=== PATIENT | female | born 1945 ===

== ENCOUNTER 2016-08-10 19:27 | Inpatient (IN) | payer MEDICARE ==
[2016-08-10] MEDS: NITROGLYCERIN SL TABS 0.4 MG TAB SUBLINGUAL ONE ×2 (22:01→22:06)
[2016-08-10] MEDS ORDERED: ONDANSETRON 4 MG/2 ML VIAL IVP PRN (23:06)
[2016-08-10] MEDS ORDERED: OXYCODONE HCL PO PRN (23:07)
[2016-08-10] MEDS: SODIUM CHLORIDE 0.9% 1,000 ML IV SCH (23:16)
[2016-08-10] MEDS: hydrALAZINE HCL 50 MG TAB PO SCH (23:36)
[2016-08-10] MEDS: tiZANidine 4 MG TAB PO SCH (23:36)
[2016-08-10] MEDS: APIXABAN 2.5 MG TABLET PO SCH (23:36)
[2016-08-10] MEDS: GABAPENTIN 300 MG CAP PO SCH (23:36)
[2016-08-10] MEDS: VENLAFAXINE HCL 75 MG TAB PO SCH (23:37)
[2016-08-10] MEDS: METOPROLOL TARTRATE 50 MG TAB PO SCH (23:37)
[2016-08-11] MEDS: LORazepam 0.5 MG TAB PO PRN (00:48)
[2016-08-11 01:48] LABS: Glucose,Whole Blood 111 mg/dL (75-99)
[2016-08-11 02:28] LABS: Basophils % (A) 1 %; CH 27.5; CHCM 31.6; Eosinophils # (A) 0.1 k/uL (0-0.7); Eosinophils % (A) 2 %; HCT 34.9 % (34.0-46.0); HDW 2.52; HGB 11.1 gm/dL (11.4-16.0); Hypochromasia Slight; Luc # (Auto) 0.18; Luc % (Auto) 3; Lymphocytes # (A) 2.1 k/uL (1.0-4.8); Lymphocytes % (A) 33 %; MCH 27.8 pg (25.0-35.0); MCHC 31.8 g/dL (31.0-37.0); MCV 87.6 fL (80.0-100.0); Mean Platelet Volume 7.6; Monocytes # (A) 0.5 k/uL (0-1.0); Monocytes % (A) 7 %; Neutrophils # (A) 3.4 k/uL (1.3-7.7); Neutrophils % (A) 54 %; RBC 3.98 m/uL (3.80-5.40); RDW 15.7 % (11.5-15.5); WBC 6.3 k/uL (3.8-10.6); WBC (Perox) 6.06
[2016-08-11] MEDS ORDERED: SODIUM CHLORIDE 0.9% 500 ML IV ONE (02:52)
[2016-08-11] MEDS ORDERED: Magnesium Replacement Protocol 1 EACH MISC MISCELLANE PRN (02:52)
[2016-08-11] MEDS ORDERED: Potassium Replacement Protocol 1 EACH MISC MISCELLANE PRN (02:52)
[2016-08-11 02:53] LABS: Calcium 8.5 mg/dL (8.4-10.2); Total Bilirubin 0.8 mg/dL (0.2-1.3); Total Protein 7.1 g/dL (6.3-8.2)
[2016-08-11 02:54] LABS: Potassium 4.9 mmol/L (3.5-5.1)
[2016-08-11 02:59] LABS: Creatine Kinase MB 1.3 ng/mL (0.0-2.4); Troponin I 0.019 ng/mL (0.000-0.034)
[2016-08-11] MEDS: SODIUM CHLORIDE 0.9% 1,000 ML IV SCH (03:52)
[2016-08-11] MEDS: PANTOPRAZOLE 40 MG TABLET PO SCH ×2 (06:41→18:22)
[2016-08-11 08:13] LABS: Basophils % (A) 1 %; CH 27.3; CHCM 30.6; Eosinophils # (A) 0.2 k/uL (0-0.7); Eosinophils % (A) 3 %; HCT 33.4 % (34.0-46.0); HDW 2.46; HGB 10.2 gm/dL (11.4-16.0); Hypochromasia Moderate; Luc % (Auto) 4; Lymphocytes % (A) 39 %; MCH 27.4 pg (25.0-35.0); MCHC 30.6 g/dL (31.0-37.0); MCV 89.7 fL (80.0-100.0); Mean Platelet Volume 7.6; Monocytes # (A) 0.4 k/uL (0-1.0); Monocytes % (A) 7 %; Neutrophils # (A) 2.5 k/uL (1.3-7.7); Neutrophils % (A) 46 %; RBC 3.73 m/uL (3.80-5.40); RDW 15.6 % (11.5-15.5); WBC 5.3 k/uL (3.8-10.6); WBC (Perox) 5.27
[2016-08-11 08:36] LABS: Calcium 8.2 mg/dL (8.4-10.2); Potassium 4.5 mmol/L (3.5-5.1)
[2016-08-11] MEDS: ASPIRIN 81 MG CHEW PO SCH (08:48)
[2016-08-11] MEDS: hydrALAZINE HCL 50 MG TAB PO SCH ×3 (08:48→22:45)
[2016-08-11] MEDS: GABAPENTIN 300 MG CAP PO SCH ×3 (08:48→22:45)
[2016-08-11] MEDS: FUROSEMIDE 20 MG TAB PO SCH (08:48)
[2016-08-11] MEDS: APIXABAN 2.5 MG TABLET PO SCH ×2 (08:48→19:58)
[2016-08-11] MEDS: VENLAFAXINE HCL 75 MG TAB PO SCH ×2 (08:49→19:58)
[2016-08-11 09:21] LABS: Troponin I 0.014 ng/mL (0.000-0.034)
[2016-08-11] MEDS: METOPROLOL TARTRATE 50 MG TAB PO SCH (10:49)
[2016-08-11] MEDS: CARVEDILOL 3.125 MG TAB PO SCH ×2 (11:37→18:22)
--- NOTE | 2016-08-11 12:06 | CONS ---
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 She was transferred from [facility] yesterday for elevated blood pressure and chest pain. She was given sublingual nitroglycerin. Her pain resolved, but her blood pressure dropped significantly and she was given IV fluids. At this time she is lying in bed comfortably. She says her blood pressure fluctuates quite a bit and despite being on multiple medications. Past history of hypertension, depression, heart failure. REVIEW OF SYSTEMS: No fever, chills, rigors. No cough or expectoration. No nausea, vomiting or diarrhea. No hematuria, dysuria, strokes or seizures. No skin lesions or musculoskeletal complaints. LABS: Her hemoglobin is 10.2. Potassium is normal. BUN 32, creatinine 1.6. GFR is in the 30s. Troponins are normal. On examination, her blood pressure is 131/61 mmHg. 103/53 and 99/52 mmHg and that was after nitroglycerin. Head and neck examination is normal. Heart sounds are normal. Rhythm is irregular. Breath sounds are normal. She is obese. IMPRESSION: 1. Hypertension. 2. Chronic kidney disease. 3. Obesity. 4. Depression. She is on Procardia. She is on metoprolol 50 b.i.d. and hydralazine. SUGGEST: She is bradycardic and is in the high 40s and therefore I will stop metoprolol and switch to carvedilol 3.125 mg p.o. b.i.d. Hopefully on this her heart rate will improve and will maximize it and hopefully her blood pressure also will be better controlled. Her cardiac enzymes are normal.
[2016-08-11] MEDS: tiZANidine 4 MG TAB PO SCH (19:58)
--- NOTE | 2016-08-11 20:19 | HP ---
DATE OF ADMISSION: 08/10/2016 REASON FOR ADMISSION: Chest pain. HISTORY OF PRESENT ILLNESS: This is a 70-year-old female that is transferred from [facility] due to complaints of chest pain and elevated blood pressure. Patient states she is compliant with her medication. She does have a history of blood pressure and states that her recent checks have been appropriately controlled. Patient went into [facility] with complaints of midsternal chest pain, stabbing in nature, radiating to her bilateral shoulders. This started as patient was resting. This was around 2:30 p.m. Patient states that there is no reproducibility of the symptoms. No recent illnesses are reported. No nausea, vomiting, difficulty breathing, abdominal pain, urinary urgency or frequency. Patient states that she is symptom-free at this time. Feels significantly improved. REVIEW OF SYSTEMS: 14 point review of systems was done; none pertinent other than mentioned above. Past medical history includes hypertension, depression and congestive heart failure and chronic low back pain. Past surgical history includes multiple back surgeries. SOCIAL HISTORY: Lives alone. Denies any illicit drug use. Remote history of smoking is reported. No drug use. FAMILY HISTORY: Not pertinent to current admission. ALLERGIES: BACTRIM. Medications at home include: 1. Zanaflex. 2. Oxycodone. 3. Hydralazine. 4. Effexor. 5. Pantoprazole. 6. Procardia. 7. Metoprolol. 8. Magnesium. 9. Ativan. 10. Neurontin. 11. Lasix. 12. Iron. 13. Aspirin. 14. Eliquis. Those were reviewed and appropriately reconciled. PHYSICAL EXAM: VITALS: Temperature is within normal limits. Heart rate is 54, respiratory rate 18, blood pressure 141/62, saturating 94% on room air. GENERALLY: Patient appears to be alert, oriented x3. HEENT: The pupils are equal and reactive to light and accommodation. HEART: S1, S2 present. No murmur appreciated. LUNGS: Good air entry. No wheezing or rhonchi noted. ABDOMINAL EXAM: Soft, nontender, no organomegaly appreciated. GENITOURINARY: No Schafer in place. EXTREMITIES: Pulses can be palpated distally. Denies any tenderness on gross palpation. SKIN: On a gross skin exam does not appear to have any purpura or any skin rashes that were noted. NEUROLOGICALLY: Grossly cranial nerves 2-12 intact. No motor or sensory deficits noted. Laboratory data includes hemoglobin 10.2, hematocrit 33.4, white count 5.3, platelets of 235, sodium 141, potassium 3.5, chloride 109, bicarb 24, BUN 32, creatinine of 1.39. Cardiac enzymes x two with troponin at a peak of 0.019. ASSESSMENT AND PLAN: 1. Accelerated hypertension with symptoms. 2. Atypical chest pain likely due to hypertension. The initial blood pressure was up to 220/100. 3. 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 4. Obesity. 5. Chronic low back pain due to degenerative disc disease. 6. Acute kidney injury on chronic kidney disease which is improved. 7. Depression. 8. Dyslipidemia. 9. Clinical obstructive sleep apnea. PLAN: Blood pressure medications were readjusted today. A cardiology consultation will be obtained. Encourage activity. Continue with telemetry monitoring as well. DVT prophylaxis will also be ensured in addition to Eliquis with ambulation and TEDS at rest. Continued ongoing care. Patient's blood pressures are stable and if asymptomatic will discharge the patient in the next 24 hours to follow up with her primary care physician. Of note, patient does have some degree of bradycardia, which she is asymptomatic to. Beta nina was switched over to carvedilol.
[2016-08-12] MEDS: SODIUM CHLORIDE 0.9% 1,000 ML IV SCH ×2 (02:39→16:16)
[2016-08-12] MEDS: PANTOPRAZOLE 40 MG TABLET PO SCH ×2 (06:30→17:49)
[2016-08-12] MEDS: CARVEDILOL 3.125 MG TAB PO SCH ×2 (06:30→17:49)
[2016-08-12] MEDS: FUROSEMIDE 20 MG TAB PO SCH (10:29)
[2016-08-12] MEDS: APIXABAN 2.5 MG TABLET PO SCH ×2 (10:29→20:06)
[2016-08-12] MEDS: ASPIRIN 81 MG CHEW PO SCH (10:29)
[2016-08-12] MEDS: VENLAFAXINE HCL 75 MG TAB PO SCH ×2 (10:30→20:06)
[2016-08-12] MEDS: hydrALAZINE HCL 50 MG TAB PO SCH ×4 (10:30→23:56)
[2016-08-12] MEDS: GABAPENTIN 300 MG CAP PO SCH ×3 (10:30→21:33)
[2016-08-12 11:51] VITALS: BMI 44.6
--- NOTE | 2016-08-12 14:01 | P.PN ---
Subjective Principal diagnosis: Hypertension This is a 70-year-old female who was initially transferred from [facility] because of hypertension. She was seen in consultation by Dr. Ferguson. Blood pressure today 144/66 with a heart rate of 60. At times the patient's heart rate is noted to go into the 40s. Dose of beta nina his Coreg 3.125 mg by mouth twice a day. Patient is going to be transferred to the [facility] unit today. We will follow now on an as-needed basis, patient has been recommended to follow-up with her master fisher on discharge. Objective - Vital Signs Vital signs: Vital Signs Temp 97.0 F L 08/12/16 08:00 Pulse 69 08/12/16 08:00 Resp 16 08/12/16 08:00 BP 144/66 08/12/16 08:00 Pulse Ox 95 08/12/16 08:00 Intake & Output 08/11/16 08/12/16 08/12/16 18:59 06:59 18:59 Intake Total 990 615 220 Output Total 1100 Balance -110 615 220 Weight 133.3 kg 133.3 kg Intake: IV 750 375 Sodium Chloride 0.9% 1, 750 375 000 ml @ 75 mls/hr IV . [id number] [facility] Rx#:[id number] Oral 240 240 220 Output: Urine 1100 Other: Voiding Method Toilet Toilet Toilet # Voids 1 1 - Exam PHYSICAL EXAMINATION: HEENT: Head is atraumatic, normocephalic. Pupils equal, round. Neck is supple. There is no elevated jugular venous pressure. HEART EXAMINATION: Heart S1, S2 normal. No murmur or gallop heard. CHEST EXAMINATION: Lungs reveal fine scattered wheezes . No chest wall tenderness is noted on palpation or with deep breathing. ABDOMEN: Soft, nontender. Bowel sounds are heard. No organomegaly noted. EXTREMITIES: 2+ peripheral pulses with no evidence of peripheral edema and no calf tenderness noted. NEUROLOGIC patient is awake, alert and oriented -3. . - Labs CBC & Chem 7: 08/11/16 07:40 08/11/16 07:40 Assessment and Plan (1) Hypertension, accelerated Status: Acute (2) Chronic kidney disease Status: Acute (3) Depressed Status: Acute (4) Obesity Status: Acute (5) Hx of deep venous thrombosis Status: Acute (6) Hyperlipemia Status: Acute Plan: From cardiology's perspective, we'll recommend to continue the patient on her current medications. She will be transferred to the medical surgical unit today and we will follow her as needed. She has been advised to make a follow- up appointment with her master fisher on discharge. DNP note has been reviewed, I agree with a documented findings and plan of care. Patient was seen and examined.
[2016-08-12] MEDS: ACETAMINOPHEN TAB 325 MG TAB PO PRN ×2 (14:25→20:03)
--- NOTE | 2016-08-12 17:45 | P.PN ---
Subjective HISTORY OF PRESENT ILLNESS: This is a 70-year-old female that is transferred from [facility] due to complaints of chest pain and elevated blood pressure. Patient states she is compliant with her medication. She does have a history of blood pressure and states that her recent checks have been appropriately controlled. Patient went into [facility] with complaints of midsternal chest pain, stabbing in nature, radiating to her bilateral shoulders. This started as patient was resting. This was around 2:30 p.m. Patient states that there is no reproducibility of the symptoms. No recent illnesses are reported. No nausea, vomiting, difficulty breathing, abdominal pain, urinary urgency or frequency. Patient states that she is symptom-free at this time. Feels significantly improved. 08/12/16 No chest pain reported however pt was dizzy with ambulation no fevers, chills, nausea, vomiting or diarrhea reported. Medications at home include: 1. Zanaflex. 2. Oxycodone. 3. Hydralazine. 4. Effexor. 5. Pantoprazole. 6. Procardia. 7. Metoprolol. 8. Magnesium. 9. Ativan. 10. Neurontin. 11. Lasix. 12. Iron. 13. Aspirin. 14. Eliquis. Those were reviewed and appropriately reconciled. PHYSICAL EXAM: VITALS: Temperature is within normal limits. Heart rate is 54, respiratory rate 18, blood pressure 141/62, saturating 94% on room air. GENERALLY: Patient appears to be alert, oriented x3. HEENT: The pupils are equal and reactive to light and accommodation. HEART: S1, S2 present. No murmur appreciated. LUNGS: Good air entry. No wheezing or rhonchi noted. ABDOMINAL EXAM: Soft, nontender, no organomegaly appreciated. GENITOURINARY: No Schafer in place. EXTREMITIES: Pulses can be palpated distally. Denies any tenderness on gross palpation. SKIN: On a gross skin exam does not appear to have any purpura or any skin rashes that were noted. NEUROLOGICALLY: Grossly cranial nerves 2-12 intact. No motor or sensory deficits noted. Objective - Vital Signs Vital signs: Vital Signs Temp 97.9 F 08/12/16 14:46 Pulse 68 08/12/16 17:33 Resp 18 08/12/16 17:33 BP 165/72 08/12/16 14:46 Pulse Ox 95 05/22/17 14:46 Intake & Output 08/11/16 08/12/16 08/12/16 18:59 06:59 18:59 Intake Total 990 615 220 Output Total 1100 Balance -110 615 220 Weight 133.3 kg 133.3 kg Intake: IV 750 375 Sodium Chloride 0.9% 1, 750 375 000 ml @ 75 mls/hr IV . [id number] [facility] Rx#:[id number] Oral 240 240 220 Output: Urine 1100 Other: Voiding Method Toilet Toilet Toilet # Voids 1 2 - Labs CBC & Chem 7: 08/11/16 07:40 08/11/16 07:40 Assessment and Plan Plan: ASSESSMENT AND PLAN: 1. Accelerated hypertension with symptoms. 2. Atypical chest pain likely due to hypertension. The initial blood pressure was up to 220/100. 3. 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 4. Obesity. 5. Chronic low back pain due to degenerative disc disease. 6. Acute kidney injury on chronic kidney disease which is improved. 7. Depression. 8. Dyslipidemia. 9. Clinical obstructive sleep apnea. PLAN: Bp is better controlled, some non specific symptoms could be due to abrupt change in bp ivf 500 NS bolus orthostatics overnight monitering will likely dc home if stable in the am.
--- NOTE | 2016-08-12 17:50 | CDI ---
In responding to this query, please exercise your independent professional judgment. The [facility] Coding Staff and Clinical Documentation Specialists appreciate your assistance in clarifying documentation, maintaining compliance with coding guidelines, accurately documenting patients condition and capturing severity of illness. The fact that a question is asked does not imply that any particular answer is desired or expected. Communication forms are a method of clarifying documentation and are not made part of the Legal Health Record. Thank you in advance for your clarification. Last Revision, January 2015 [address] [facility] [place] [address] Documentation Clarification Form Date: 08/12/2016 4:50:00 PM From: April Moraes Admit Date: 08/10/2016 9:27:00 PM Patient Name: Bev Benitez Visit Number: [id number] Discharge Date: Dr. Gennaro Guillaume Accelerated hypertension is documented in the H&P and progress notes. Patient history/risk factors: Hypertension, Obesity Clinical Indicators: Complaints of chest pain, midsternal and elevated blood pressure and states she is compliant with her medication. Lab findings: WBC 5.3, HGB 10.2, HCT 33.4, BUN 32, CR 1.39, Troponin 0.018 Radiology findings: Vital Signs: 165/71 70 28, 194/75 78 18 ( H&P notes initial blood pressure was up to 22/100) Treatment: Telemetry monitoring ASA PO Coreg PO Hydralazine Hcl PO Procardia Xl PO In your professional opinion, can you please clarify accelerated hypertension and if clinically appropriate are you treating? Hypertensive crisis: according to the [place] [employer], Hypertensive crisis is defined as two consecutive blood pressure readings with a systolic BP of >180mmHG Or diastolic BP>: 110mmHG Hypertensive Urgency: Hypertensive crisis without organ damage. Symptoms may or may not be present, but can include: severe headache, shortness of breath, nosebleeds, severe anxiety. Treatment; adjustment of oral blood pressure medications . Hypertensive Emergency: Hypertensive crisis with organ damage. These patients require immediate treatment of blood pressure, most often with IV medications. these patient may experience organ damage Symptoms are consistent with the organ damage that has occurred: chest pain, back pain shortness of breath. visual changes. Other ( Specify if any Heart and or Kidney involvement) Unable to determine Please document in your progress notes and discharge summary in order to capture severity of illness and risk of mortality. Include clinical findings that support your diagnosis. FYI: Press F11 to launch patient chart. Place X here if this finding has no clinical significance, is not applicable or if you are not able to provide any additional documentation. LINDSAY
--- NOTE | 2016-08-12 17:53 | CDI ---
In responding to this query, please exercise your independent professional judgment. The [facility] Coding Staff and Clinical Documentation Specialists appreciate your assistance in clarifying documentation, maintaining compliance with coding guidelines, accurately documenting patients condition and capturing severity of illness. The fact that a question is asked does not imply that any particular answer is desired or expected. Communication forms are a method of clarifying documentation and are not made part of the Legal Health Record. Thank you in advance for your clarification. Last Revision, January 2015 [address] [place] [address] Documentation Clarification Form Date: 08/12/2016 5:29:00 PM From: April Moraes Admit Date: 08/10/2016 9:27:00 PM Patient Name: Bev Benitez Visit Number: [id number] Discharge Date: Dr. Gennaro Guillaume History/Risk Factors: Hypertension, Obesity, Chronic Kidney disease, On admission: BUN 36 CR 1.60 GFR:32 Current: BUN 32 CR 1.39 GFR: 37 Clinical Indicators: Per H&P Treatment: IV fluid bolus Monitor Labs In order to capture the severity of condition, please clarify if the condition signifies: CKD Stage 1 (GFR > 90) CKD Stage 2 (GFR 60-89) CKD Stage 3 (GFR 30-59) CKD Stage 4 (GFR 15-29) CKD Stage 5 (GFR <15) ESRD Unable to determine Other condition, please specify Please document in your progress notes and discharge summary in order to capture severity of illness and risk of mortality. Include clinical findings that support your diagnosis. FYI: Press F11 to launch patient chart. Place X here if this finding has no clinical significance, is not applicable or if you are not able to provide any additional documentation. LINDSAY
[2016-08-12] MEDS ORDERED: SODIUM CHLORIDE 0.9% 500 ML IV ONE (18:22)
[2016-08-12] MEDS: tiZANidine 4 MG TAB PO SCH (20:06)
[2016-08-12] MEDS ORDERED: FERROUS SULFATE 325 MG TAB PO SCH (23:07)
[2016-08-13] MEDS: SODIUM CHLORIDE 0.9% 1,000 ML IV SCH ×2 (05:45→17:40)
[2016-08-13] MEDS: VENLAFAXINE HCL 75 MG TAB PO SCH ×2 (08:05→21:13)
[2016-08-13] MEDS: APIXABAN 2.5 MG TABLET PO SCH ×2 (08:06→21:12)
[2016-08-13] MEDS: GABAPENTIN 300 MG CAP PO SCH ×3 (08:06→21:13)
[2016-08-13] MEDS: PANTOPRAZOLE 40 MG TABLET PO SCH ×2 (08:06→17:12)
[2016-08-13] MEDS: CARVEDILOL 3.125 MG TAB PO SCH ×2 (08:06→17:12)
[2016-08-13] MEDS: hydrALAZINE HCL 50 MG TAB PO SCH (08:06)
[2016-08-13] MEDS: ASPIRIN 81 MG CHEW PO SCH (08:06)
[2016-08-13 09:00] LABS: Basophils % (A) 1 %; CH 27.4; CHCM 30.8; Eosinophils # (A) 0.2 k/uL (0-0.7); Eosinophils % (A) 4 %; HCT 40.9 % (34.0-46.0); HDW 2.48; HGB 12.9 gm/dL (11.4-16.0); Hypochromasia Slight; Luc # (Auto) 0.19; Luc % (Auto) 3; Lymphocytes # (A) 2.2 k/uL (1.0-4.8); Lymphocytes % (A) 36 %; MCH 28.2 pg (25.0-35.0); MCHC 31.6 g/dL (31.0-37.0); MCV 89.4 fL (80.0-100.0); Mean Platelet Volume 7.4; Monocytes # (A) 0.5 k/uL (0-1.0); Monocytes % (A) 9 %; Neutrophils # (A) 2.9 k/uL (1.3-7.7); Neutrophils % (A) 48 %; RBC 4.58 m/uL (3.80-5.40); RDW 15.6 % (11.5-15.5); WBC 6.1 k/uL (3.8-10.6); WBC (Perox) 6.09
[2016-08-13 09:06] LABS: Calcium 9.3 mg/dL (8.4-10.2); Total Bilirubin 0.7 mg/dL (0.2-1.3); Total Protein 7.9 g/dL (6.3-8.2)
[2016-08-13 09:32] LABS: Potassium 4.3 mmol/L (3.5-5.1)
[2016-08-13] MEDS ORDERED: ACETAMINOPHEN TAB 325 MG TAB ONE (13:45)
[2016-08-13] MEDS: ACETAMINOPHEN TAB 325 MG TAB PO PRN ×2 (13:46→21:13)
--- NOTE | 2016-08-13 16:48 | P.PN ---
Subjective HISTORY OF PRESENT ILLNESS: This is a 70-year-old female that is transferred from [facility] due to complaints of chest pain and elevated blood pressure. Patient states she is compliant with her medication. She does have a history of blood pressure and states that her recent checks have been appropriately controlled. Patient went into [facility] with complaints of midsternal chest pain, stabbing in nature, radiating to her bilateral shoulders. This started as patient was resting. This was around 2:30 p.m. Patient states that there is no reproducibility of the symptoms. No recent illnesses are reported. No nausea, vomiting, difficulty breathing, abdominal pain, urinary urgency or frequency. Patient states that she is symptom-free at this time. Feels significantly improved. 08/12/16 No chest pain reported however pt was dizzy with ambulation no fevers, chills, nausea, vomiting or diarrhea reported. 08/13/16 states to be slightly improved Orthostatics still positive No cp reported. PHYSICAL EXAM: VITALS: Temperature is within normal limits. Heart rate is 54, respiratory rate 18, blood pressure 141/62, saturating 94% on room air. GENERALLY: Patient appears to be alert, oriented x3. HEENT: The pupils are equal and reactive to light and accommodation. HEART: S1, S2 present. No murmur appreciated. LUNGS: Good air entry. No wheezing or rhonchi noted. ABDOMINAL EXAM: Soft, nontender, no organomegaly appreciated. GENITOURINARY: No Schafer in place. EXTREMITIES: Pulses can be palpated distally. Denies any tenderness on gross palpation. SKIN: On a gross skin exam does not appear to have any purpura or any skin rashes that were noted. NEUROLOGICALLY: Grossly cranial nerves 2-12 intact. No motor or sensory deficits noted. Objective - Vital Signs Vital signs: Vital Signs Temp 97.0 F L 08/13/16 14:39 Pulse 69 08/13/16 16:00 Resp 18 08/13/16 16:00 BP 127/65 08/13/16 14:39 Pulse Ox 93 L 08/13/16 14:39 Intake & Output 08/12/16 08/13/16 08/13/16 18:59 06:59 18:59 Intake Total 220 1240 Output Total 2 2 Balance 220 -2 1238 Weight 133.3 kg 128.5 kg 128.5 kg Intake: IV 1000 Sodium Chloride 0.9% 1, 1000 000 ml @ 75 mls/hr IV . [id number] [facility] Rx#:[id number] Oral 220 240 Output: Urine 2 2 Other: Voiding Method Toilet Toilet Toilet # Voids 2 2 # Bowel Movements 1 - Labs CBC & Chem 7: 08/13/16 08:06 08/13/16 08:06 Labs: Abnormal Lab Results - Last 24 Hours (Table) 08/13/16 08/13/16 Range/Units 08:06 08:06 RDW 15.6 H (11.5-15.5) % BUN 21 H (7-17) mg/dL Creatinine 1.45 H (0.52-1.04) mg/dL Glucose 103 H (74-99) mg/dL Assessment and Plan Plan: ASSESSMENT AND PLAN: 1. Accelerated hypertension with symptoms. HTN Emergency now has hypotension with orthostatics, medication induced 2. Atypical chest pain likely due to hypertension. The initial blood pressure was up to 220/100. 3. 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 4. Obesity. 5. Chronic low back pain due to degenerative disc disease. 6. Acute kidney injury on chronic kidney disease which is improved. 7. Depression. 8. Dyslipidemia. 9. Clinical obstructive sleep apnea. PLAN: recheck orthostatics decrease hydralazine 25mg bid decrease procardia xl 30mg ivf fall precautions
[2016-08-13] MEDS: hydrALAZINE HCL 25 MG TAB PO SCH (21:12)
[2016-08-13] MEDS: tiZANidine 4 MG TAB PO SCH (21:13)
[2016-08-14] MEDS: GABAPENTIN 300 MG CAP PO SCH ×3 (08:11→21:20)
[2016-08-14] MEDS: hydrALAZINE HCL 25 MG TAB PO SCH ×2 (08:11→21:20)
[2016-08-14] MEDS: APIXABAN 2.5 MG TABLET PO SCH ×2 (08:11→21:19)
[2016-08-14] MEDS: PANTOPRAZOLE 40 MG TABLET PO SCH ×2 (08:11→14:56)
[2016-08-14] MEDS: ASPIRIN 81 MG CHEW PO SCH (08:11)
[2016-08-14] MEDS: CARVEDILOL 3.125 MG TAB PO SCH ×2 (08:11→14:56)
[2016-08-14] MEDS: VENLAFAXINE HCL 75 MG TAB PO SCH ×2 (08:12→21:20)
[2016-08-14] MEDS: NIFEdipine XL 30 MG TAB.ER.24 PO SCH (08:12)
[2016-08-14] MEDS: SODIUM CHLORIDE 0.9% 1,000 ML IV SCH ×2 (08:12→21:19)
[2016-08-14 09:55] LABS: Basophils % (A) 1 %; CH 27.7; CHCM 30.6; Eosinophils # (A) 0.2 k/uL (0-0.7); Eosinophils % (A) 4 %; HCT 38.9 % (34.0-46.0); HDW 2.46; HGB 12.1 gm/dL (11.4-16.0); Hypochromasia Moderate; Luc # (Auto) 0.14; Luc % (Auto) 3; Lymphocytes # (A) 1.5 k/uL (1.0-4.8); Lymphocytes % (A) 29 %; MCH 28.3 pg (25.0-35.0); MCHC 31.1 g/dL (31.0-37.0); MCV 90.9 fL (80.0-100.0); Mean Platelet Volume 7.8; Monocytes # (A) 0.5 k/uL (0-1.0); Monocytes % (A) 9 %; Neutrophils # (A) 2.8 k/uL (1.3-7.7); Neutrophils % (A) 54 %; RBC 4.28 m/uL (3.80-5.40); RDW 15.8 % (11.5-15.5); WBC 5.2 k/uL (3.8-10.6); WBC (Perox) 5.28
[2016-08-14 10:53] LABS: Calcium 9.3 mg/dL (8.4-10.2); Potassium 4.4 mmol/L (3.5-5.1); Total Bilirubin 0.6 mg/dL (0.2-1.3); Total Protein 7.4 g/dL (6.3-8.2)
[2016-08-14] MEDS ORDERED: SODIUM CHLORIDE 0.9% 1,000 ML IV ONE (13:23)
[2016-08-14] MEDS: LORazepam 0.5 MG TAB PO PRN (14:58)
--- NOTE | 2016-08-14 17:07 | P.PN ---
Subjective HISTORY OF PRESENT ILLNESS: This is a 70-year-old female that is transferred from [facility] due to complaints of chest pain and elevated blood pressure. Patient states she is compliant with her medication. She does have a history of blood pressure and states that her recent checks have been appropriately controlled. Patient went into [facility] with complaints of midsternal chest pain, stabbing in nature, radiating to her bilateral shoulders. This started as patient was resting. This was around 2:30 p.m. Patient states that there is no reproducibility of the symptoms. No recent illnesses are reported. No nausea, vomiting, difficulty breathing, abdominal pain, urinary urgency or frequency. Patient states that she is symptom-free at this time. Feels significantly improved. 08/12/16 No chest pain reported however pt was dizzy with ambulation no fevers, chills, nausea, vomiting or diarrhea reported. 08/13/16 states to be slightly improved Orthostatics still positive No cp reported. 08/14/16 Pt is still symptomatic with ambuation, complaints of lightheadedness no new overnight events reported orthostatics positive lastnight. PHYSICAL EXAM: GENERAL : Patient appears to be alert, oriented x3. HEENT: The pupils are equal and reactive to light and accommodation. HEART: S1, S2 present. No murmur appreciated. LUNGS: Good air entry. No wheezing or rhonchi noted. ABDOMINAL EXAM: Soft, nontender, no organomegaly appreciated. GENITOURINARY: No Schafer in place. EXTREMITIES: Pulses can be palpated distally. Denies any tenderness on gross palpation. SKIN: On a gross skin exam does not appear to have any purpura or any skin rashes that were noted. NEUROLOGICALLY: Grossly cranial nerves 2-12 intact. No motor or sensory deficits noted. Objective - Vital Signs Vital signs: Vital Signs Temp 96.8 F L 08/14/16 15:00 Pulse 73 08/14/16 15:00 Resp 20 08/14/16 15:00 BP 156/83 08/14/16 15:00 Pulse Ox 95 08/14/16 15:00 Intake & Output 08/13/16 08/14/16 08/14/16 18:59 06:59 18:59 Intake Total 1240 200 Output Total 2 Balance 1238 200 Weight 128.5 kg Intake: IV 1000 Sodium Chloride 0.9% 1, 1000 000 ml @ 75 mls/hr IV . [id number] [facility] Rx#:[id number] Oral 240 200 Output: Urine 2 Other: Voiding Method Toilet Toilet Toilet # Voids 2 2 2 # Bowel Movements 1 - Labs CBC & Chem 7: 08/14/16 09:19 08/14/16 09:19 Labs: Abnormal Lab Results - Last 24 Hours (Table) 08/14/16 08/14/16 Range/Units 09:19 09:19 RDW 15.8 H (11.5-15.5) % Chloride 109 H (98-107) mmol/L BUN 19 H (7-17) mg/dL Creatinine 1.43 H (0.52-1.04) mg/dL Glucose 110 H (74-99) mg/dL Assessment and Plan Plan: ASSESSMENT AND PLAN: 1. Accelerated hypertension with symptoms. HTN Emergency now has hypotension with orthostatics, medication induced 2. Atypical chest pain likely due to hypertension. The initial blood pressure was up to 220/100. 3. 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 4. Obesity. 5. Chronic low back pain due to degenerative disc disease. 6. Acute kidney injury on chronic kidney disease which is improved. 7. Depression. 8. Dyslipidemia. 9. Clinical obstructive sleep apnea. PLAN: recheck orthostatics 1 L crystalloids decrease hydralazine 25mg bid decrease procardia xl 30mg moniter vitals If stable can likely be discharged home ximena fall precautions
[2016-08-14] MEDS: tiZANidine 4 MG TAB PO SCH (21:20)
[2016-08-15] MEDS: ACETAMINOPHEN TAB 325 MG TAB PO PRN (01:19)
[2016-08-15] MEDS: LORazepam 0.5 MG TAB PO PRN (01:19)
[2016-08-15] MEDS: GABAPENTIN 300 MG CAP PO SCH ×2 (07:50→15:38)
[2016-08-15] MEDS: APIXABAN 2.5 MG TABLET PO SCH (07:51)
[2016-08-15] MEDS: SODIUM CHLORIDE 0.9% 1,000 ML IV SCH (07:51)
[2016-08-15] MEDS: ASPIRIN 81 MG CHEW PO SCH (07:51)
[2016-08-15] MEDS: hydrALAZINE HCL 25 MG TAB PO SCH (07:51)
[2016-08-15] MEDS: NIFEdipine XL 30 MG TAB.ER.24 PO SCH (07:51)
[2016-08-15] MEDS: PANTOPRAZOLE 40 MG TABLET PO SCH ×2 (07:51→15:37)
[2016-08-15] MEDS: VENLAFAXINE HCL 75 MG TAB PO SCH (07:51)
[2016-08-15] MEDS: CARVEDILOL 3.125 MG TAB PO SCH ×2 (07:51→15:37)
[2016-08-15 08:34] VITALS: RESP 16
--- NOTE | 2016-08-15 11:50 | CDI ---
In responding to this query, please exercise your independent professional judgment. The [facility] Coding Staff and Clinical Documentation Specialists appreciate your assistance in clarifying documentation, maintaining compliance with coding guidelines, accurately documenting patients condition and capturing severity of illness. The fact that a question is asked does not imply that any particular answer is desired or expected. Communication forms are a method of clarifying documentation and are not made part of the Legal Health Record. Thank you in advance for your clarification. Last Revision, January 2015 [address] [facility] [place] [address] Documentation Clarification Form Date: 08/12/2016 5:29:00 PM From: April Moraes Admit Date: 08/10/2016 9:27:00 PM Patient Name: Bev Benitez Visit Number: [id number] Discharge Date: Dr. Gennaro Guillaume History/Risk Factors: Hypertension, Obesity, Chronic Kidney disease, On admission: BUN 36 CR 1.60 GFR:32 Current: BUN 32 CR 1.39 GFR: 37 Clinical Indicators: Per H&P Treatment: IV fluid bolus Monitor Labs In order to capture the severity of condition, please clarify if the condition signifies: CKD Stage 1 (GFR > 90) CKD Stage 2 (GFR 60-89) CKD Stage 3 (GFR 30-59) CKD Stage 4 (GFR 15-29) CKD Stage 5 (GFR <15) ESRD Unable to determine Other condition, please specify Please document in your progress notes and discharge summary in order to capture severity of illness and risk of mortality. Include clinical findings that support your diagnosis. FYI: Press F11 to launch patient chart. Place X here if this finding has no clinical significance, is not applicable or if you are not able to provide any additional documentation. LINDSAY
[2016-08-15 15:27] VITALS: BP 151/65; PULSE 75; TEMP 97.5
--- NOTE | 2016-08-16 09:00 | DS ---
DATE OF ADMISSION: 08/10/2016 DATE OF DISCHARGE: 08/15/2016 Patient is a 70-year-old admitted from [facility] secondary to chest pain which is considered secondary to accelerated hypertension and hypertensive emergency. Patient is clinically doing well at this point of time. Patient's blood pressure subsequently dropped because of which titration of antihypertensives are being made by Dr. Guillaume. The patient's blood pressure is fairly stable at this point of time. Patient will be discharged today. Nifedipine will be continued as it is. Hydralazine will be discontinued. Patient will need to check the blood pressure at home on a regular basis. Patient was seen and examined on the day of discharge. Vitals are stable. PHYSICAL EXAMINATION: GENERAL: The patient is alert and oriented x3, not in any acute distress. Well developed, well nourished. HEENT: Pupils are round and equally reacting to light. EOMI. No scleral icterus. No conjunctival pallor. Normocephalic, atraumatic. No pharyngeal erythema. No thyromegaly. CARDIOVASCULAR: S1 and S2 present. No murmurs, rubs, or gallops. PULMONARY: Chest is clear to auscultation, no wheezing or crackles. ABDOMEN: Soft, nontender, nondistended, normoactive bowel sounds. No palpable organomegaly. MUSCULOSKELETAL: No joint swelling or deformity. EXTREMITIES: No cyanosis, clubbing, or pedal edema. NEUROLOGICAL: Gross neurological examination did not reveal any focal deficits. SKIN: No rashes. FINAL DIAGNOSES: 1. Accelerated hypertension leading to atypical chest pain secondary to hypertension, was evaluated by Cardiology. 2. Deep venous thrombosis in the past for which patient is on Eliquis. 3. Chronic low back pain. 4. Acute kidney injury. 5. Depression. 6. Dyslipidemia. 7. Possibility of sleep apnea. Patient will be discharged today. Patient will follow as outpatient. Please refer to my depart summary for further details of discharge medications. Her Lasix is being discontinued because of renal dysfunction and patient does not have any heart failure at this time. Metoprolol will be switched to Coreg. Patient is being discharged on same dose of amlodipine. Hydralazine is being discontinued. Patient will follow with [facility]IL[facility] in about 3 to 7 days. Activity as tolerated. Cardiac diet. I spent greater than 35 minutes in total discharge process.
== END 2016-08-15 16:51 | disposition home or self-care (01) | DRG 305 ==
LOC: 6SEL 21:27 → 4MS4W 08-12 13:47
PROVIDERS: ADMIT Internal Medicine; ATTEND Internal Medicine
DX: I16.1 Hypertensive emergency (principal); N17.9 Acute kidney failure, unspecified; Z68.41 Body mass index [BMI] 40.0-44.9, adult; I50.9 Heart failure, unspecified; E66.9 Obesity, unspecified; N18.3 Chronic kidney disease, stage 3 (moderate); I13.0 Hypertensive heart and chronic kidney disease with heart failure and stage 1 through stage 4 chronic kidney disease, or unspecified chronic kidney disease; G47.33 Obstructive sleep apnea (adult) (pediatric); F32.9 Major depressive disorder, single episode, unspecified; G89.29 Other chronic pain; M54.5 Low back pain; E78.5 Hyperlipidemia, unspecified; Z87.891 Personal history of nicotine dependence; Z86.718 Personal history of other venous thrombosis and embolism; Z79.01 Long term (current) use of anticoagulants; Z79.82 Long term (current) use of aspirin; Z79.899 Other long term (current) drug therapy
CPT/HCPCS: 80048; 80053; 82550; 82553; 84484; 85025